=== PATIENT | female | born 1930 | race Caucasian/White ===

== ENCOUNTER 2017-12-13 09:09 | Observation (INO) | payer MEDICARE, OTHER ==
[~2017-12-13] VITALS: Ht 167.6 cm; Wt 67.8 kg
[~2017-12-13 09:09] MED LIST: ASPIR-LOW81 MG PO; ASPIRIN325 MG PO; CENTRUM SILVER1 EAC1 PO; CEPHALEXIN500 MG PO; CERTAVITE SR-A1 EACH PO; CLINORIL200 MG PO; COLACE100 MG PO; FOLIC ACID0.4 MG PO; GELATIN650 MG PO; LEVOXYL100 MCG PO; MIRALAX17 GM PO; NITROGLYCERIN0.4 MG SL; SERTRALINE HCL100 MG PO; SULINDAC200 MG PO; ZOLOFT50 MG PO
--- NOTE | 2017-12-13 13:38 | EKG ---
[facility] [address] [place] [address] Signed Atrial flutter with 4:1 AV conduction Abnormal ECG When compared with ECG of 13-DEC-2017 09:19, (Unconfirmed) Vent. rate has decreased BY 38 BPM Confirmed by RENAY DAVE MD ([id number] on 12/13/2017 1:38:30 PM Electronically Signed By: RENAY DAVE MD 12/13/17 1338 PATIENT NAME: AUGUSTO RAO Electrocardiogram DATE OF : [birth year] PHYSICIAN: RENAY DAVE MD REPORT #: [id number] REPORT IS CONFIDENTIAL AND NOT TO BE RELEASED WITHOUT AUTHORIZATION
--- NOTE | 2017-12-14 04:56 | EKG ---
[facility] [address] [place] [address] Signed Atrial flutter with variable AV block Abnormal ECG When compared with ECG of 28-FEB-2017 12:23, Atrial flutter has replaced Sinus rhythm Vent. rate has increased BY 43 BPM Nonspecific T wave abnormality now evident in Inferior leads Confirmed by JA IRVING MD ([id number] on 12/14/2017 4:56:42 AM Electronically Signed By: JA IRVING MD 12/14/17 0456 PATIENT NAME: AUGUSTO RAO Electrocardiogram DATE OF : [birth year] PHYSICIAN: JA IRVING MD REPORT #: [id number] REPORT IS CONFIDENTIAL AND NOT TO BE RELEASED WITHOUT AUTHORIZATION
[2017-12-16] MEDS ORDERED: METOPROLOL TART25 MG PO (12:08)
[2017-12-16] MEDS ORDERED: DILTIAZEM 24HR120 MG PO (12:09)
== END 2017-12-16 13:51 | disposition home or self-care (01) ==
LOC: ED 09:09 → CCU 09:10 → MS 12-14 22:45
PROVIDERS: ADMIT Internal Medicine
DX: I48.92 Unspecified atrial flutter (principal); E03.9 Hypothyroidism, unspecified; R41.82 Altered mental status, unspecified; I48.91 Unspecified atrial fibrillation; I45.5 Other specified heart block; R53.83 Other fatigue; K59.00 Constipation, unspecified; Z79.82 Long term (current) use of aspirin; Z79.899 Other long term (current) drug therapy
CPT/HCPCS: 70450; 70551; 71045; 80053; 81001; 83735; 84436; 84443; 84479; 84484; 85025; 93005; 93010; 93306; 96361; 96372; 96374; 96376; 97112; 97116; 97162; 97166; 97530; 99285; G0378; G8978; G8979; J1650; J7040

== ENCOUNTER 2017-12-17 12:59 | Emergency (ER) | payer MEDICARE, OTHER ==
[~2017-12-17] VITALS: Ht 167.6 cm; Wt 67.8 kg
[~2017-12-17 12:59] MED LIST changes: +DILTIAZEM 24HR120 MG PO; +METOPROLOL TART25 MG PO
--- NOTE | 2017-12-18 07:20 | EKG ---
[facility] [address] [facility] [place] [address] Signed Atrial flutter with variable AV block Abnormal ECG When compared with ECG of 13-DEC-2017 11:02, ST elevation now present in Inferior leads Confirmed by JA IRVING MD ([id number] on 12/18/2017 7:20:42 AM Electronically Signed By: JA IRVING MD 12/18/17 0720 PATIENT NAME: AUGUSTO RAO SAI Electrocardiogram DATE OF : [birth year] PHYSICIAN: JA IRVING MD REPORT #: [id number] REPORT IS CONFIDENTIAL AND NOT TO BE RELEASED WITHOUT AUTHORIZATION
== END 2017-12-17 15:50 | disposition home or self-care (01) ==
LOC: ED 12:59
DX: G45.9 Transient cerebral ischemic attack, unspecified (principal); E03.9 Hypothyroidism, unspecified; Z88.5 Allergy status to narcotic agent; Z88.8 Allergy status to other drugs, medicaments and biological substances; Z88.4 Allergy status to anesthetic agent; Z79.899 Other long term (current) drug therapy; Z79.82 Long term (current) use of aspirin
CPT/HCPCS: 70450; 71045; 80053; 81001; 84484; 85025; 85610; 85730; 93005; 93010; 96361; 96374; 99285